=== PATIENT | male | born 1950 | race Caucasian/White ===

== ENCOUNTER 2023-08-28 04:48 | Emergency (ER) | payer MEDICARE, BC, SELFPAY ==
[2023-08-28 04:51] VITALS: BP 143/74
[2023-08-28 05:58] LABS: INR 3.54
--- NOTE | 2023-08-28 06:03 | ED.GENMED ---
History of Present Illness
General
Chief Complaint: Oral/Mouth Problem
Source: patient and spouse
Exam Limitations: none
Time Seen by Provider: 08/28/23 05:46
Nursing documentation reviewed up to this point in time: agreed with
Travel History
Have you had any contact with someone who has COVID-19?: No
Do you have any symptoms of coronavirus? Fever > 100 degrees, chills, cough, shortness of breath, sore throat, loss of taste or smell, muscle aches, or headache?: No
History of Present Illness
History of Present Illness:
This is a 72-year-old gentleman who resides at home with his . He has history of mitral valve replacement as well as history of paroxysmal atrial fibrillation chronically maintained on Coumadin.
He underwent dental cleaning yesterday and did have minimal gingival bleeding immediately after the procedure which then promptly resolved. He awoke this morning around 2 AM and noticed some blood in his mouth and has been intermittently spitting
out blood since that time. He denies sense of postnasal drip, he denies dental pain nor oral/tongue pain.
He denies dizziness nor lightheadedness, no chest pain or coughing or shortness of breath, no nausea nor vomiting, no abdominal pain.
He states his INR was last checked 2 to 3 weeks ago and it was 3.2. Goal INR is 2.5-3.5.
Past History
Past History
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
ED Past Surgical History: Cardiac (Mitral valve replacement; A-fib ablation), Cholecystectomy and Orthopedic
Social History
Tobacco: Non-smoker
Alcohol: None
Drug: Other
Personal:
Living: with family
Employment: Retired
Family History
Family History: Other
Phy Exam
Physical Exam
Physical Exam:
GENERAL: Alert , in no apparent distress. 72-year-old gentleman appears his stated age, bright and alert, pleasant, appears in no acute distress. Intermittently dabbing at his mouth, tongue with a blood-tinged towel. is accompanying.
EYE: anicteric
NECK: Supple, nontender, no meningismus, no significant adenopathy.
ENT: posterior pharynx is clear, oral mucosa is moist. TM clear b/l, nares patent. There is minimal blood streaking posteriorly at the base of the left central incisor and left lateral incisor superiorly. There is also note of intermittent
streaking of blood from posterior aspect of the left posterior upper molar. It appears these are the sites of minimal, intermittent oozing of blood. There is no evidence of gingival bleeding inferiorly nor on the right side. There is no dental
tenderness.
CARDIAC: Regular rate and rhythm. no murmur.
LUNGS: Clear breath sounds bilaterally, no acute respiratory distress, no wheezes/rales/rhonchi
ABDOMEN: Soft, nondistended, without focal tenderness
NEUROLOGICAL: Alert and oriented x3, no focal neuro deficits. Gait is steady.
SKIN: Warm and dry, normal color, skin intact. No rash.
MUSCULOSKELETAL: No C/C/E. peripheral pulses are full and equal b/l. No palpable tenderness.
PSYCH: Normal and appropriate interaction.
Course
Orders/Labs/Results
Orders:
Orders
08/28/23 05:34
Prothrombin Time Urgent
08/28/23 05:52
Tranexamic Acid 1,000 mg .ROUTE .STK-MED ONE
Abnormal Lab Results
08/28/23
05:34
PT 36.0 H Sec
(11.4-14.6)
Vital Signs
Initial and Last Documented VS:
Initial Vital Signs
Temp Pulse Resp BP Pulse Ox
98.0 F 72 18 143/74 96
08/28/23 04:51 08/28/23 04:51 08/28/23 04:51 08/28/23 04:51 08/28/23 04:51
Last Documented Vital Signs
Temp Pulse Resp BP Pulse Ox
98.0 F 72 18 143/74 96
08/28/23 04:51 08/28/23 04:51 08/28/23 04:51 08/28/23 04:51 08/28/23 04:51
MDM/Problems Addressed
Differential Diagnosis Includes:
Patient presents to the Emergency Department with oral bleeding after dental cleaning yesterday.
Number and Complexity of Problems Addressed at the Encounter
� Chronic conditions affecting care: Chronically maintained on Coumadin; history of mechanical valve replacement and prior history of A-fib.
� Acute Exacerbation and/or Progression of Chronic Illness:
� Differential Diagnosis includes: Concern for occult dental injury, gingival injury, less likely gingival infection. Concern for coagulopathy related to Coumadin.
PT/INR is pending.
Exam remarkable for focal area of minimal oozing of blood between left upper and left lateral central incisors posteriorly. Will trial local ice water oral swish and spit and then follow with topical TXA.
Amount and/or Complexity of Data to be Reviewed and Analyzed
� I performed an independent evaluation of and my interpretation is:
EKG:
CT:
Xrays:
Laboratory Studies: PT/INR minimally elevated at 3.54. With current bleeding would recommend holding dose of Coumadin today and then resume regular schedule tomorrow.
Other:
� Review of other/old records reveals:
� Clinical information was obtained by an independent historian:
� Prescriptions/Medications Considered but not given:
� Further testing considered but not performed: Patient has had only minimal bleeding. He had no dizziness nor lightheadedness, nothing to suggest acute blood loss anemia. No indication for CBC.
Risk of Complications and/or Morbidity or Mortality of Patient Management
� Social determinants of health affecting care:
� Discussion with other providers (PCP, Hospitalists, Consultants, etc):
� Escalation of care including admission/observation vs risk of discharge considered:
Chronic conditions affecting care: Arrhythmia (Chronically maintained on Coumadin)
*Pulse Oximetry
Patient hypoxic: no
*Critical Care Note
Total Time (30-74mins, 75-104mins- exclusive of procedures): Not Applicable
Update Note
Update Note:
Topical TXA resulted in no further bleeding from upper central incisor but he continues to have very minimal intermittent oozing from left posterior upper molar region.
Local pressure with Surgicel against this left upper posterior molar has resulted in significant decrease in bleeding but he continues to have very minimal intermittent use. An additional Surgicel dressing has been applied to that area.
PT/INR is 3.54, slightly above therapeutic goal. Recommend he hold his Coumadin for today, resume dosing tomorrow.
Will discharge to home with plan for prompt follow-up with dentist this morning. plans to call the office when they open at 8:30 AM.
If bleeding seems to worsen recommend trial of ice water gargling as well and sucking on a teabag. If this is ineffective and if they are unable to get in contact with dentist, prompt return to the ED for further evaluation.
ED Attending Note
-
Portions of this chart may have been created with voice recognition software.� Occasional wrong word or��sound alike� substitutions may have occurred due to the inherent limitations of voice recognition software.
Discharge Plan
Departure
Patient Disposition: Home (Routine Discharge)
Date of Disposition: 08/28/23
Time of Disposition: 07:29
Patient with high blood pressure during this ER visit?: No
Condition: Good
Discharge Problem:
Bleeding gums, mild coumadin coagulopathy
Instructions: Bleeding Gums (DC)
Prescriptions:
No Action
cetirizine [Zyrtec] 10 MG tablet
0.5 tab PO PRN PRN (Reason: allergies)
Patient Comments:
pt unsure of strength
warfarin [Jantoven] 5 MG tablet
7.5 mg PO DAILY
aspirin 325 MG tablet
325 mg PO DAILY
levothyroxine 50 MCG tablet
50 mcg PO DAILY
multivitamin [Daily Multi-Vitamin] 1 EACH tablet
1 ea PO DAILY
pantoprazole 40 MG tablet,delayed release (DR/EC)
40 mg PO PRN PRN (Reason: as needed)
calcipotriene [Dovonex] 120 GM cream
60 gm TP PRN PRN (Reason: as needed)
celecoxib 200 MG capsule
200 mg PO BID
metoprolol tartrate 50 MG tablet
50 mg PO BID
Referrals:
PRIVATE,PHYSICIAN [Family Provider] -
Activity Restrictions/Additional Instructions:
Hold your Coumadin dose for today, you can resume your usual dosing tomorrow.
Call your dentist today for follow-up appointment today to recheck bleeding gums on the left side.
Hold off on eating and drinking at least over the next 3 to 4 hours.
Interventions
Interventions:
*General Assessment Last Done: 08/28/23 04:51
*Neglect/Abuse Screening Last Done: 08/28/23 04:51
ED- Fall Risk Assessment Last Done: 08/28/23 04:51
*ED COVID-19 Vaccine History Last Done: 08/28/23 04:51
[2023-08-28 07:36] VITALS: BP 113/71
== END 2023-08-28 07:49 | disposition home or self-care (01) ==
LOC: EMR 04:48
PROVIDERS: EMERGENCY PHYSICIAN Emergency Medicine
DX: K06.8 Other specified disorders of gingiva and edentulous alveolar ridge (principal); T45.515A Adverse effect of anticoagulants, initial encounter; I38 Endocarditis, valve unspecified; I48.0 Paroxysmal atrial fibrillation; Z95.2 Presence of prosthetic heart valve; Z86.73 Personal history of transient ischemic attack (TIA), and cerebral infarction without residual deficits; Z79.01 Long term (current) use of anticoagulants; Z90.49 Acquired absence of other specified parts of digestive tract; Z88.1 Allergy status to other antibiotic agents; Z88.8 Allergy status to other drugs, medicaments and biological substances
CPT/HCPCS: 99283; 85610

== ENCOUNTER → 2024-05-21 09:00 | Outpatient (REF) | payer MEDICARE, BC, SELFPAY | LOC: RCS 09:00 | PROVIDERS: ATTENDING PHYSICIAN Internal Medicine Cardiovascular Disease; FAMILY PHYSICIAN Family Medicine | DX: Z95.2 Presence of prosthetic heart valve (principal) | CPT/HCPCS: 93306 ==

== ENCOUNTER 2024-07-12 06:48 | Day surgery (SDC) | payer MEDICARE, BC, SELFPAY ==
[2024-07-12 08:10] VITALS: BMI 32.4
[2024-07-12 08:23] LABS: PT 35.6 Sec (11.4-14.6)
[2024-07-12] MEDS: PACERONE 200 MG PO (09:25)
--- NOTE | 2024-07-12 13:06 | ITS.CL.CARDI ---
Clinical Case Manager - Cardioversion
Cardioversion
Procedure Report:
Date of Procedure: Jul 12 2024
Procedure: Cardioversion
Indication: Symptomatic atrial tachycardia
Performing Physician: Jeff Honeycutt DO, FACC
Technique: The patient was brought to the holding area. Signed informed consent was obtained. A time out was called and performed. The patient was anesthetized by the anesthesia service. Anticoagulation status was reviewed and appropriate. R2 pads
were placed anteriorly and posteriorly. A 200 J synchronized biphasic shock did not restore normal sinus rhythm. Subsequent 300 J and 360 J shocks were also performed and not successful. He tolerated the procedure. There were no complications.
Conclusion: Unsuccessful cardioversion from atrial tachycardia to sinus rhythm.
Recommendation: Routine post cardioversion care. Continue regional [employer] anticoagulation. Discussed with EP, start amiodarone 200 mg BID for 1 month and then 200 mg daily.
== END 2024-07-12 11:10 | disposition home or self-care (01) ==
LOC: CATH 06:48
PROVIDERS: ATTENDING PHYSICIAN Nuclear Medicine Nuclear Cardiology; FAMILY PHYSICIAN Family Medicine; OTHER PHYSICIAN Internal Medicine Cardiovascular Disease
DX: I47.19 Other supraventricular tachycardia (principal); I48.0 Paroxysmal atrial fibrillation; Z86.73 Personal history of transient ischemic attack (TIA), and cerebral infarction without residual deficits; Z79.82 Long term (current) use of aspirin; Z79.85 Long-term (current) use of injectable non-insulin antidiabetic drugs; Z79.01 Long term (current) use of anticoagulants
CPT/HCPCS: 85610; 92960; 93005

== ENCOUNTER → 2025-07-07 08:12 | Outpatient (REF) | payer MEDICARE, BC, SELFPAY | LOC: HWRCS 08:12 | PROVIDERS: ATTENDING PHYSICIAN Nurse Practitioner; FAMILY PHYSICIAN Family Medicine | DX: I48.0 Paroxysmal atrial fibrillation (principal); Z95.2 Presence of prosthetic heart valve | CPT/HCPCS: 93306 ==